=== PATIENT | male | born 1950 | race Caucasian/White ===

== ENCOUNTER 2016-11-27 15:33 | Emergency (ER) | payer BC ==
[2016-11-27 15:47] VITALS: BP 143/83
[2016-11-27] MEDS ORDERED: Tetan/Diph/Pertus SYR(Tdap)* 0.5 ML SYR(BOOSTRIX) use SYR IM ONE (15:57)
--- NOTE | 2016-11-27 16:09 | UC ---
Laceration HPI - HPI Summary HPI Summary: cut finger 1 hr ago cut the tip of his left index finger on a sharp wooden object - History Of Current Complaint Chief Complaint: UCUpperExtremity Stated Complaint: RIGHT INDEX FINGER LACERATION Time Seen by Provider: 11/27/16 15:48 Hx Obtained From: Patient Laceration Location: Finger - left index finger Onset/Duration: Sudden Onset, Lasting Hours - 1, Still Present Severity: Moderate Aggravating Factors: Movement - Allergies/Home Medications Allergies/Adverse Reactions: Allergies Allergy/AdvReac Type Severity Reaction Status Date / Time Penicillins AdvReac GI Verified 11/27/16 15:49 Pseudoephedrine AdvReac "makes me Verified 11/27/16 15:49 [From Actifed] float" Tetracycline AdvReac "feels Verified 11/27/16 15:49 blah" Triprolidine [From Actifed] AdvReac "makes me Verified 11/27/16 15:49 float" CT dye AdvReac vomited Uncoded 11/27/16 15:49 Home Medications: Home Medications Calcium Carbonate CHEW TAB* [Tums*] 500 mg PO BID PRN 11/27/16 [History Confirmed 11/27/16] Ibuprofen TAB* [Motrin TAB* 600 MG] 600 mg PO Q6H PRN 11/27/16 [History Confirmed 11/27/16] Lansoprazole CAP (NF) [Prevacid CAP (NF)] 30 mg PO BEDTIME 11/27/16 [History Confirmed 11/27/16] Urinary Medication 1 tab .ROUTE DAILY 11/27/16 [History Confirmed 11/27/16] PMH/Surg Hx/FS Hx/Imm Hx Previously Healthy: Yes - Surgical History Surgical History: Yes Surgery Procedure, Year, and Place: oral surgery - Family History Known Family History: Negative: Diabetes - Social History Alcohol Use: Rare Substance Use Type: None Smoking Status (MU): Never Smoked Tobacco - Immunization History Most Recent Influenza Vaccination: unknown Review of Systems Constitutional: Negative Skin: Other - laceration finger Eyes: Negative ENT: Negative Respiratory: Negative Cardiovascular: Negative All Other Systems Reviewed And Are Negative: Yes Physical Exam Triage Information Reviewed: Yes Appearance: Well-Appearing, No Pain Distress, Well-Nourished Vital Signs: Initial Vital Signs Temp 98.0 F 11/27/16 15:42 Pulse 72 11/27/16 15:42 Resp 17 11/27/16 15:42 BP 143/83 11/27/16 15:42 Pulse Ox 99 11/27/16 15:42 Vital Signs Reviewed: Yes Eyes: Positive: Conjunctiva Clear ENT: Positive: Normal ENT inspection, Hearing grossly normal, Pharynx normal Neck exam: Normal Respiratory: Positive: Chest non-tender, Lungs clear, Normal breath sounds Cardiovascular: Positive: RRR, No Murmur, Pulses Normal Skin: Positive: Other - 1/4 cm laceration left index finger distal phalangs. no need for repain will clean the the wound , apply pressure dressing Laceration Repair - Laceration Repair 1 Description: Linear : No Repair Necessary Laceration Size After Repair: Width (mm) - 1/2 Modified For Repair: No Cleansing Completed Via Routine Prep: Yes Laceration Course/Dx - Differential Dx - Laceration/Wound Provider Diagnoses: laceration left index finger Discharge - Discharge Plan Condition: Stable Disposition: HOME Patient Education Materials: Finger Laceration (ED) Referrals: No Primary Care Phys,NOPCP [Primary Care Provider] - Additional Instructions: follow up for wound check in 2 days
== END 2016-11-27 16:42 | disposition home or self-care (01) ==
LOC: UCCORT 15:33
DX: S61.211A Laceration without foreign body of left index finger without damage to nail, initial encounter (principal); W45.8XXA Other foreign body or object entering through skin, initial encounter; Y93.9 Activity, unspecified; Y92.9 Unspecified place or not applicable; Z23 Encounter for immunization; Z88.1 Allergy status to other antibiotic agents; Z88.0 Allergy status to penicillin; Z88.8 Allergy status to other drugs, medicaments and biological substances
CPT/HCPCS: 90471; 90715; 99202; G0463

== ENCOUNTER 2016-11-29 09:37 | Emergency (ER) | payer BC ==
[2016-11-29 10:36] VITALS: BP 116/79
--- NOTE | 2016-11-29 11:02 | UC ---
HPI Wound/Suture Re-check - HPI Summary HPI Summary: HERE FOR RECHECK OF LEFT INDEX FINGER LACERATION. PT CUT HIS FINGER ON A PIECE OF WOOD. NO SUTURES He was seen here 2 days ago and was covered with a pressure dressing. no fevers or chills. he has nopt removed bandage. no bleeding through bandage. - History Of Current Complaint Chief Complaint: UC Stated Complaint: LEFT FINGER RECHECK Time Seen by Provider: 11/29/16 10:44 - Allergies/Home Medications Allergies/Adverse Reactions: Allergies Allergy/AdvReac Type Severity Reaction Status Date / Time Penicillins AdvReac GI Verified 11/29/16 10:18 Pseudoephedrine AdvReac "makes me Verified 11/29/16 10:18 [From Actifed] float" Tetracycline AdvReac "feels Verified 11/29/16 10:18 blah" Triprolidine [From Actifed] AdvReac "makes me Verified 11/29/16 10:18 float" CT dye AdvReac vomited Uncoded 11/29/16 10:18 PMH/Surg Hx/FS Hx/Imm Hx - Surgical History Surgical History: Yes Surgery Procedure, Year, and Place: oral surgery. BACK SURGERY 1995 - Family History Known Family History: Negative: Diabetes - Social History Alcohol Use: Rare Substance Use Type: None Smoking Status (MU): Never Smoked Tobacco - Immunization History Most Recent Influenza Vaccination: none Most Recent Tetanus Shot: 11/27/16 Review of Systems Constitutional: Negative Skin: Negative Eyes: Negative ENT: Negative Respiratory: Negative Cardiovascular: Negative Gastrointestinal: Negative Genitourinary: Negative Motor: Negative Neurovascular: Negative Musculoskeletal: Negative Neurological: Negative Psychological: Negative All Other Systems Reviewed And Are Negative: Yes Physical Exam Triage Information Reviewed: Yes Appearance: Well-Appearing, No Pain Distress, Well-Nourished Vital Signs: Initial Vital Signs Temp 97.6 F 11/29/16 10:20 Pulse 65 11/29/16 10:20 Resp 18 11/29/16 10:20 BP 116/79 11/29/16 10:20 Pulse Ox 99 11/29/16 10:20 ENT Exam: Normal Respiratory Exam: Normal Respiratory: Positive: Lungs clear, Normal breath sounds Cardiovascular Exam: Normal Cardiovascular: Positive: RRR, No Murmur, Pulses Normal, Brisk Capillary Refill Musculoskeletal Exam: Normal Neurological Exam: Normal Psychological Exam: Normal Skin Exam: Other - left 4th finger dressing removed. no erythema, healing of 1/ 4 inch laceration. no bleeding. no discharge. cool to touch. skin is not yet opposed. Course/Dx - Course Course Of Treatment: no signs of infection. pressure dressing and have removed in 2-3 days at PCP or here. he is very agreeable. - Differential Dx - Laceration/Wound Differential Diagnoses: Other - laceration 2 days ago Provider Diagnoses: laceration f/u. Discharge - Discharge Plan Condition: Stable Disposition: HOME Patient Education Materials: Finger Laceration (ED) Referrals: No Primary Care Phys,NOPCP [Primary Care Provider] - Additional Instructions: You told me you have a PCP in [place] and that you agree to follow up there in 2- 3 days to receheck your wound. Please folloow up sooner than that with fevers, chills, or bleeding at the site.
== END 2016-11-29 11:34 | disposition home or self-care (01) ==
LOC: UCCORT 09:37
DX: S61.211D Laceration without foreign body of left index finger without damage to nail, subsequent encounter (principal); W45.8XXD Other foreign body or object entering through skin, subsequent encounter; Y92.9 Unspecified place or not applicable; Z88.0 Allergy status to penicillin; Z88.1 Allergy status to other antibiotic agents; Z88.8 Allergy status to other drugs, medicaments and biological substances; Z91.041 Radiographic dye allergy status
CPT/HCPCS: 99212; G0463

== ENCOUNTER 2018-07-10 08:42 | Emergency (ER) | payer SELFPAY ==
[2018-07-10 09:19] VITALS: BP 130/65
--- NOTE | 2018-07-10 09:52 | UC ---
Bite Injury/Animal HPI - HPI Summary HPI Summary: 67 y/o male presents to the urgent care c/o Rt index finger dog bite by his girlfriend's dog 2 days ago. Pt reports he was petting the dog and all the sudden he bit his finger. Dog is UTD w/ all immunizations. Pt is UTD w/ Tetanus vaccine, last vaccine was 2016. Now his finger is getting infected, red, swollen w/ purulent discahrge. He can move finger w/o any difficulty. Pain is 6/ 10 at touch. He irrigated well wound. 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 However he would lie to get the rabies vaccine. Pt denies numbness or tingling sensation over the Rt index or hand, SOB, chest pain, abdominal pain, muscle pain or contractions, BRODERICK, dizziness, N/V/D. - History of Current Complaint Chief Complaint: UCBiteInjury Stated Complaint: DOG BITE RIGHT INDEX FINGER Time Seen by Provider: 07/10/18 09:25 Hx Obtained From: Patient Severity Currently: Moderate Severity Initially: Moderate Pain Intensity: 6 Pain Scale Used: 0-10 Numeric Onset/Duration: Sudden Onset, Lasting Days - 2 days, Still Present, Worse Since - yesterday Type of Bite: Pet - dog Has Animal Been Immunized?: Yes Character: Puncture Aggravating Factor(s): Other - touch Alleviating Factor(s): Rest Associated Signs And Symptoms: Positive: Erythema, Drainage, Swelling. Negative : Fever, Lymphadenopathy, Numbness/Tingling, Limited ROM Hx of Bite: Unprovoked Animal Available for Observation: Yes Animal Control Notified: No - Risk Factors Infection/Sepsis Risk Factors: Delay in Initial Treatment - Allergies/Home Medications Allergies/Adverse Reactions: Allergies Allergy/AdvReac Type Severity Reaction Status Date / Time pseudoephedrine Allergy Unknown "MAKES ME Verified 07/10/18 09:19 [From Actifed] FLOAT" Tetracyclines Allergy Unknown Nausea Verified 07/10/18 09:19 triprolidine [From Actifed] Allergy Unknown "MAKES ME Verified 07/10/18 09:19 FLOAT" Penicillins AdvReac Unknown Diarrhea Verified 07/10/18 09:19 enviromental Allergy Unknown Unknown Uncoded 07/10/18 09:[address] dye AdvReac vomited Uncoded 07/10/18 09:19 Home Medications: Home Medications Atorvastatin* [Lipitor 10 MG*] 10 mg PO DAILY 07/10/18 [History Confirmed ] Ibuprofen TAB* [Advil TAB*] 200 mg PO Q6H PRN 07/10/18 [History Confirmed ] Multivitamin [Multivitamins] 1 cap PO 07/10/18 [History] oxyCODONE TAB* [Roxycodone TAB 5 mg*] 5 mg PO Q6H PRN 07/10/18 [History Confirmed 07/10/18] traZODone TAB* [Desyrel TAB*] 50 mg PO BEDTIME PRN 07/10/18 [History Confirmed 07/10/18] PMH/Surg Hx/FS Hx/Imm Hx Previously Healthy: Yes Endocrine History: Dyslipidemia - Surgical History Surgical History: Yes Surgery Procedure, Year, and Place: oral surgery - Family History Known Family History: Positive: Diabetes - Social History Occupation: Retired Lives: With Family Alcohol Use: Rare Substance Use Type: None Smoking Status (MU): Never Smoked Tobacco - Immunization History Most Recent Influenza Vaccination: none Most Recent Tetanus Shot: 11/27/16 Hx Tetanus, Diphtheria Vaccination: Yes Review of Systems Constitutional: Negative Skin: Other - puncture wound s/p dog bite w/ swelling and yellowish drainage Eyes: Negative ENT: Negative Respiratory: Negative Cardiovascular: Negative Gastrointestinal: Negative Genitourinary: Negative Motor: Negative Neurovascular: Negative Musculoskeletal: Other: - Rt index finger pain s/p dog bite Neurological: Negative Psychological: Negative Is Patient Immunocompromised?: No All Other Systems Reviewed And Are Negative: Yes Physical Exam - Summary Physical Exam Summary: Vital Signs Reviewed: Yes General: well developed, well nourished male sitting in the examining table w/o any apparent distress. Eyes: Positive: Conjunctiva Clear - PERRLA, EOMI ENT: Positive: Normal ENT inspection, Hearing grossly normal, Pharynx normal, TMs normal Neck: Positive: Supple, Nontender, No Lymphadenopathy Respiratory: Positive: Chest nontender, Lungs clear, Normal breath sounds Cardiovascular: Positive: RRR, No Murmur, Pulses Normal Abdomen Description: Positive: Nontender, No Organomegaly, Soft. Negative: CVA Tenderness (R), CVA Tenderness (L) Bowel Sounds: Positive: Present Musculoskeletal: Positive: Strength Intact, ROM Intact, No Edema Neurological Exam: Normal Psychological Exam: Normal Skin: Positive: rashes - Medial aspect of RT index finger w/ a puncture wound w / erythematous patch w/ indistinct borders about 0.4x 0.3 cm in size, warm to touch, swollen and tender to palpation. Mild yellowish drainage and crusting observed. FROm on Rt index and Rt hand. capillary refill brisk, pulses, WNL, sensation intact. Triage Information Reviewed: Yes Vital Signs: Initial Vital Signs Temp 97 F 07/10/18 09:05 Pulse 73 07/10/18 09:05 Resp 18 07/10/18 09:05 BP 130/65 07/10/18 09:05 Pulse Ox 99 07/10/18 09:05 Bite Injury Course/Dx - Course Course Of Treatment: 67 y/o male presents to the urgent care c/o Rt index finger dog bite by his girlfriend's dog 2 days ago. Pt reports he was petting the dog and all the sudden he bit his finger. Dog is UTD w/ all immunizations. Pt is UTD w/ Tetanus vaccine, last vaccine was 2016. Now his finger is getting infected, red, swollen w/ purulent discahrge. He can move finger w/o any difficulty. Pain is 6/10 at touch. He irrigated well wound. 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 However he would lie to get the rabies vaccine. Pt denies numbness or tingling sensation over the Rt index or hand, SOB , chest pain, abdominal pain, muscle pain or contractions, BRODERICK, dizziness, N/V/ D. Hx obtained. Pt w/ Medial aspect of Rt index finger w/ an erythemaotus puncture wound w/ mild swelling, yellowish drainage and some crusting. FROM of Rt index finger on examination. Wound cultures ordered and sent to lab to r/o any abdnormality. Pt's wound irrigated well w/ sterile water and iodine swabs by nurse and triple antibiotic applied and sterile dressing applied. pt is PCN allergic which only causes his diarrhea. Pt Rx Augmentin PO and advised to take yogurts w/ probiotic or culturelle to protect his GI system. Pt explained the urgent do not have the Rabies vaccines and advised him to go to the ER or [facility] department to obtained Rabies and Immunuglobulin vaccines for further management. Also advised to closely observe the dog's behavior. Pt understood and agreed w/ plan of care. Pt left clinic ambulating and hemodynamically stable. - Differential Dx/Diagnosis Differential Diagnosis/HQI/PQRI: Cellulitis, Laceration, Puncture, Rabies Exposure, Superficial Infection Provider Diagnoses: 1- puncture wound w/ Cellulitis of Rt index finger s/p dog bite. 2- Dog bite Discharge - Sign-Out/Discharge Documenting (check all that apply): Patient Departure - D/C home All imaging exams completed and their final reports reviewed: No Studies - Discharge Plan Condition: Stable Disposition: HOME Prescriptions: Amoxicillin/Clavulanate TAB* [Augmentin TAB 875*] 875 mg PO BID #20 tab Bacitracin OINTMENT* 1 applic TOPICAL BID #1 tube Patient Education Materials: Animal Bite (ED) Referrals: [facility] [Outside] - 2 Days Additional Instructions: 1-Please take full course of Antibiotic. Since PCN gives you Diarrhea please take yogurt w/ probiotics or take culturelle to protect your GI system. 2- If redness and swelling doubles in size beyond what was demarcated after 48 hrs of taking antibiotic and fever develops please go to the ER immediately. 3-Avoid flexing your Rt index finger to much keep wound clean and dry. Apply Bacitracin oint as directed over the wound. 4- We don't have the Rabies Vaccine. Please go to the [facility] ER or go to [facility] to get vaccine. Observe the dog for any abnormal behavior 5-Please F/u with your PCP in 2 days for further check up to see if symptoms are improving. - Billing Disposition and Condition Condition: STABLE Disposition: Home
== END 2018-07-10 10:13 | disposition home or self-care (01) ==
LOC: UCCORT 08:42
DX: S61.250A Open bite of right index finger without damage to nail, initial encounter (principal); L03.011 Cellulitis of right finger; W54.0XXA Bitten by dog, initial encounter; Y93.89 Activity, other specified; Y92.9 Unspecified place or not applicable
CPT/HCPCS: 87070; 87077; 87186; 87205; 99211; G0463